=== PATIENT | male | born 1955 | race African-American/Black ===

== ENCOUNTER 2020-07-01 11:43 | Inpatient (IN) | payer OTHER ==
[~2020-07-01] VITALS: Ht 182.9 cm; Wt 192.8 kg
[2020-07-01 11:45] VITALS: BP 168/87
[2020-07-01 12:34] LABS: MONOCYTES 4.3 % (1.0-8.0); RBC 3.86 mil/uL (4.50-6.00)
[2020-07-01 12:38] LABS: ABSOLUTE NEUTROPHILS 8.7 thou/uL (1.4-8.2); BASOPHILS 0.3 % (0.0-2.0); HEMATOCRIT 33.8 % (42.0-52.0); HEMOGLOBIN 10.9 gm/dL (14.0-18.0); LYMPHOCYTES 4.6 % (24.0-44.0); MCH 28.3 pg (26.0-34.0); MCHC 32.4 g/dL (28.0-37.0); MCV 87.5 fL (80.0-100.0); PLATELET COUNT 162 thou/uL (150-400); POLYS 88.8 % (36.0-66.0); RDW 17.4 % (10.5-14.5); WBC 9.8 thou/uL (4.0-11.0)
[2020-07-01 12:44] LABS: ANION GAP 15 mmol/L (7-16); BUN 93 mg/dL (7-18); CALCIUM 9.7 mg/dL (8.5-10.1); CHLORIDE 98 mmol/L (98-107); CO2 26 mmol/L (21-32); CREATININE 8.8 mg/dL (0.7-1.3); GLUCOSE 101 mg/dL (74-106); POTASSIUM 4.2 mmol/L (3.5-5.1); SODIUM 139 mmol/L (136-145)
--- NOTE | 2020-07-01 12:47 | EKG ---
[place] [address] [place] [address] ELECTROCARDIOGRAM REPORT Name: JAGDEEPESVIN Charles Room #: [facility]#: [id number] Admission: 07/01/20 Attend Phys: Discharge: Date of : 55 Report #: [id number] [facility] ED Test Date: 2020-07-01 Test Time: 11:46:32 Pat Name: ESVIN GANNON Department: Room: Gender: M [employer]: [id number] : 1955 Requested By: Adrianna Briseno Order Number: [id number] MD: Sergio Alcantar Measurements Intervals [place] Rate: 84 P: 29 GA: 247 QRS: -10 QRSD: 101 T: 63 QT: 384 QTc: 454 Interpretive Statements Sinus rhythm Ventricular premature complex Prolonged GA interval Probable left atrial enlargement Anteroseptal infarct, age indeterminate No previous ECG available for comparison Electronically Signed On 07-01-2020 12:47:36 CDT by Sergio Alcantar [email or web address] <ELECTRONICALLY SIGNED> By: Sergio Alcantar MD, [facility] 07/01/20 1247 1146 1146 Sergio Alcantar MD, FACC /EPI
[2020-07-01 12:54] LABS: ALBUMIN 3.3 g/dL (3.4-5.0); SGOT 13 U/L (15-37); SGPT 17 U/L (30-65); TOTAL BILIRUBIN 0.4 mg/dL (0.2-1.0); TOTAL PROTEIN 7.4 g/dL (6.4-8.2); TROPONIN-I <0.06 ng/mL (<0.06)
[2020-07-01] MEDS ORDERED: TYLENOL325 M1 PO (12:59)
[2020-07-01] MEDS ORDERED: CARVEDILOL25 MG PO (13:00)
[2020-07-01] MEDS ORDERED: LIPITOR40 MG PO (13:00)
[2020-07-01] MEDS ORDERED: ALLOPURINOL 10100 M3 PO (13:00)
[2020-07-01] MEDS ORDERED: PLAVIX 75 MG TA75 MG PO (13:01)
[2020-07-01] MEDS ORDERED: SENSIPAR 30 MG30 MG PO (13:01)
[2020-07-01] MEDS ORDERED: ZETIA10 MG PO (13:01)
[2020-07-01] MEDS ORDERED: NEURONTIN300 MG PO (13:02)
[2020-07-01] MEDS ORDERED: FUROSEMIDE 40 M40 MG PO (13:02)
[2020-07-01] MEDS ORDERED: MIRALAX17 GM PO (13:03)
[2020-07-01] MEDS ORDERED: IPRAT-ALBUT 0.5-3 ML INH (13:04)
[2020-07-01] MEDS ORDERED: BIDIL TABLET1 EACH PO (13:04)
[2020-07-01] MEDS ORDERED: VYZULTA5 ML LT. EYE (13:05)
[2020-07-01] MEDS ORDERED: ENOXAPARIN30 MG/0.3 SUBQ (13:05)
[2020-07-01] MEDS ORDERED: NEPHRO-VITE RX1 TA1 PO (13:05)
[2020-07-01] MEDS ORDERED: PROTONIX40 M2 PO (13:06)
[2020-07-01] MEDS ORDERED: RENVELA800 MG PO (13:06)
[2020-07-01] MEDS ORDERED: SENNA PLUS TAB1 EACH PO (13:06)
[2020-07-01 16:21] VITALS: BP 115/88
[2020-07-01 17:12] VITALS: BP 182/87
[2020-07-01 17:50] VITALS: BP 153/81
--- NOTE | 2020-07-01 19:19 | NUR ---
RECEIVED PT FROM THE ER. PT IS AXOX3, SITUATIONAL AWARENESS CHANGES WHEN ASKING QUESTIONS. BP WAS HIGH IN ER BECAUSE OF AGITATION. SBP 150s. ADMISSION COMPLETED. PT RECEIVES HEMODIALYSIS MWF, L FA FISTULA. BED REPAIRER WELDING EQUIPMENT ORDERED FOR PT. PT BROTHER CALLED FOR UPDATE. POC IS TO DETERMINE CAUSE OF CP, N/V. PT IS NON AMBULATORY. FALL PRECAUTIONS IN PLACE. NO CONCERNS AT THIS TIME.
[2020-07-01 20:15] VITALS: BP 121/87
[2020-07-01 23:50] VITALS: BP 139/64
--- NOTE | 2020-07-02 03:22 | NUR ---
AWAKE MOST OF NOC WATCHING TV AND SNACKING. ASSIST TO REPOSITION NEEDED. WORKING ON GOALS AND PLAN OF CARE FOR NOC. DENIES FEELING OF SHORTNESS OF AIR. TOLERATED CPAP WITH O2 FOR 3 HOURS. NO COMPLAINTS OF CHEST PAIN THIS SHIFT. CONTINUE TO ASSES.
[2020-07-02 04:45] VITALS: BP 117/53
[2020-07-02 06:56] LABS: BASOPHILS 0.3 % (0.0-2.0); HEMATOCRIT 31.7 % (42.0-52.0); HEMOGLOBIN 9.9 gm/dL (14.0-18.0); LYMPHOCYTES 9.9 % (24.0-44.0); MCH 27.5 pg (26.0-34.0); MCHC 31.1 g/dL (28.0-37.0); MCV 88.4 fL (80.0-100.0); PLATELET COUNT 170 thou/uL (150-400); POLYS 79.8 % (36.0-66.0); RBC 3.59 mil/uL (4.50-6.00); RDW 17.3 % (10.5-14.5); WBC 7.6 thou/uL (4.0-11.0)
[2020-07-02 07:11] LABS: CALCIUM 9.7 mg/dL (8.5-10.1); MAGNESIUM 2.4 mg/dL (1.8-2.4); POTASSIUM 4.9 mmol/L (3.5-5.1)
[2020-07-02 07:12] VITALS: BP 122/53
[2020-07-02 07:15] LABS: CREATININE 10.2 mg/dL (0.7-1.3)
[2020-07-02 11:26] VITALS: BP 114/58
[2020-07-02 15:22] VITALS: BP 112/70
--- NOTE | 2020-07-02 18:42 | NUR ---
PT IS AXOX3, SITUATION AWARENESS STILL CHANGING. VSS, AFEBRILE, SR WITH PVCS ON MONITOR. NEPHRO CONSULTED. PT RECEIVED DIAYLSIS THIS PM. [address] RANDLE CONSULTED. POC IS TO CONTINUE ABX THERAPY, MONITOR PT FOR CHEST PAIN, N/V. PT RECEIVED ZOFRAN PRIOR TO DIALYSIS AND DENIES N/V/CHEST PAIN DURING PROCEDURE. RT CONSULTED. PT TO WEAR BIPAP HS. FALL PRECAUTIONS IN PLACE. FREQUENT ROUNDING. NO CONCERNS AT THIS TIME.
[2020-07-02 20:15] VITALS: BP 133/56
[2020-07-03 04:45] VITALS: BP 135/71
[2020-07-03 07:20] VITALS: BP 127/54
[2020-07-03 11:00] VITALS: BP 98/73
[2020-07-03 15:30] VITALS: BP 104/65
[2020-07-03 19:30] VITALS: BP 119/72
[2020-07-04 03:50] VITALS: BP 151/87
--- NOTE | 2020-07-04 04:32 | NUR ---
NOTED WEIGHT CHANGE, BED NOW HAS BED ELIGIBILITY SPECIALIST ON BED SINCE ADMISSION. AWAITING DIALYSIS THIS AM. SLEPT PART OF SHIFT. WORKING ON GOALS AND PLAN OF CARE FOR NOC. CONTINUE TO ASSES. DENIES COMPLAINTS OF PAIN, SHORTNESS OF AIR OR NAUSEA. ASKS FOR SNACKS FREQUENTLY.
[2020-07-04 07:25] VITALS: BP 153/81
[2020-07-04] MEDS ORDERED: KEFLEX250 MG PO (08:15)
--- NOTE | 2020-07-04 08:20 | NUR ---
PT ADMITTED FROM [facility]. PT LIVES ALONE IN A [facility]. PT STATED HIS UNCLE WILL MOVE IN WITH HIM ONCE HE RTRNS HOME. PT IS RECEIVING DIALYSIS THIS AM AND THEN WILL RTRN TO SKILLED FACILITY TO RESUME THERAPY. PT STATED HE USES A W/C AND WALKER AT HOME. CM WILL CONT TO FOLLOW.
[2020-07-04 11:06] VITALS: BP 117/67
--- NOTE | 2020-07-04 13:35 | NUR ---
Patient stable to discharge return to [facility]. Sp with Shaista in admissions at [facility]. Faxed ordres and updated information. SP wth patient and his mother and alerted of time of discharge as well at RN. Dante van arranged by [facility] for [phone].
[2020-07-04 17:06] LABS: HEP B SURFACE Ab(ANTI-HBS Reactive (()); HEPATITIS B SURFACE AG Negative (Negative)
--- NOTE | 2020-07-05 12:14 | NUR ---
BPCI letter and preferred network list provided to patient, lives at home setting
== END 2020-07-04 14:11 | DRG 193 ==
LOC: ER 11:43 → 2N 13:36 → EROBS 13:36 → 2N 17:20
PROVIDERS: Internal Medicine Nephrology; Nurse Practitioner Family; ADMIT Internal Medicine; ATTEND Internal Medicine
PROC: 5A1D70Z Performance of Urinary Filtration, Intermittent, Less than 6 Hours Per Day (ICD-10-PCS; principal; 2020-07-02)
PROC: 5A1D70Z Performance of Urinary Filtration, Intermittent, Less than 6 Hours Per Day (ICD-10-PCS; 2020-07-03)
PROC: 5A1D70Z Performance of Urinary Filtration, Intermittent, Less than 6 Hours Per Day (ICD-10-PCS; 2020-07-04)
DX: J18.9 Pneumonia, unspecified organism (principal); N18.6 End stage renal disease; J96.01 Acute respiratory failure with hypoxia; J81.1 Chronic pulmonary edema; I50.32 Chronic diastolic (congestive) heart failure; Z68.43 Body mass index [BMI] 50.0-59.9, adult; I13.2 Hypertensive heart and chronic kidney disease with heart failure and with stage 5 chronic kidney disease, or end stage renal disease; E66.01 Morbid (severe) obesity due to excess calories; E11.22 Type 2 diabetes mellitus with diabetic chronic kidney disease; M10.9 Gout, unspecified; D63.8 Anemia in other chronic diseases classified elsewhere; G47.33 Obstructive sleep apnea (adult) (pediatric); F03.90 Unspecified dementia, unspecified severity, without behavioral disturbance, psychotic disturbance, mood disturbance, and anxiety; K21.9 Gastro-esophageal reflux disease without esophagitis; J44.9 Chronic obstructive pulmonary disease, unspecified; Z20.822 Contact with and (suspected) exposure to COVID-19; Z88.8 Allergy status to other drugs, medicaments and biological substances; Z79.899 Other long term (current) drug therapy; I69.322 Dysarthria following cerebral infarction; Z99.2 Dependence on renal dialysis
CPT/HCPCS: 10081; 32100

== ENCOUNTER 2020-08-20 04:19 | Emergency (ER) | payer OTHER ==
[~2020-08-20] VITALS: Ht 182.9 cm; Wt 167.8 kg
--- NOTE | ~2020-08-20 | EMS ---
[facility] [address] [place] [address] EMS Patient Care Report Name: ESVIN GANNON Room #: DEP DINO Walker#: [id number] Admission: 08/20/20 Attend Phys: Discharge: 08/20/20 Date of : 55 Report #: [id number] THIS REPORT FOR: //name// Report Transmitted: 08/23/2020 14:42 EMS Care Summary [place], [place]/[facility] Incident [id number] @ 08/20/2020 03:50 Incident Location [facility] Patient ESVIN GANNON Male, 65 Years 1955 Patient Address [address] [place] [id number] Patient History Other,Hypertension (HTN),Stroke/CVA,End Stage Renal Disease (ESRD),Morbid Obesity,Anemia,Hypotension,Shortness of Breath,Sleep Apnea,Dialysis,Hyperkalemia, Patient Allergies Lisinopril, Patient Medications Amlodipine, Plavix, Acetaminophen, Atorvastatin, Lasix, Coreg, Allopurinol, Chief Complaint constipation Disposition Transported No Lights/[place] Dispatch Reason Chest Pain (Non-Traumatic) Transported To [facility] Narrative pt found a&o, NAD, in bed. he call 911 because he is having to strain to have [facility] [address] [place] [address] EMS Patient Care Report Name: ESVIN GANNON Room #: DEP [facility]#: [id number] Admission: 08/20/20 Attend Phys: Discharge: 08/20/20 Date of : 55 Report #: [id number] a BM. he called 911 last night for same but was not transported. staff gave pt a laxative@2200 last night. pt states he hasn't had a BM since the laxative. his last BM was yesterday afternoon. he req eval at [facility]. pt moved to [facility], transport w/o change. Initial Vitals @04:11P: 75,R: 18,BP: 187/81,Pain: 4/10,GCS: 15,SpO2: 96,Revised Trauma: 12, Assessments @03:59MENTAL:No Abnormalities,SKIN:No Abnormalities,HEENT:Head/Face: No Abnormalities,LUNG SOUNDS:ABDOMEN:PELVIS//GI:Pelvis GUOther,EXTREMITIES:PULSE:NEURO:No Abnormalities, Impression Constipation Procedures @03:59ALS AssessmentResponse: Unchanged@04:10StretcherResponse: Unchanged Timeline 03:48,Call Received 03:48,Dispatch Notified 03:50,Dispatched 03:51,En Route 03:56,On Scene 03:59,At Patient 03:59,ALS Assessment,Response: Unchanged 04:10,Stretcher,Response: Unchanged 04:11,BP: 187/81 M,PULSE: 75,RR: 18 R,SPO2: 96 Ox,ETCO2: ,BG: ,PAIN: 4,GCS: 15, 04:13,Depart Scene 04:16,At Destination 04:45,Call Closed Disclaimer v1.1 Copyright 2020 [employer] This EMS Care Summary contains data elements from the applicable legal record (which may be displayed differently). It is designed to provide pertinent information for the following purposes: continuity of care, clinical quality, and state data reporting. The complete legal record is available to ED staff and administrators of the receiving hospital in [employer]'s Patient Tracker. All data is provided "as is."
[~2020-08-20 04:19] MED LIST: ALLOPURINOL 10100 M3 PO; BIDIL TABLET1 EACH PO; CARVEDILOL25 MG PO; ENOXAPARIN30 MG/0.3 SUBQ; FUROSEMIDE 40 M40 MG PO; IPRAT-ALBUT 0.5-3 ML INH; KEFLEX250 MG PO; LIPITOR40 MG PO; MIRALAX17 GM PO; NEPHRO-VITE RX1 TA1 PO; NEURONTIN300 MG PO; PLAVIX 75 MG TA75 MG PO; PROTONIX40 M2 PO; RENVELA800 MG PO; SENNA PLUS TAB1 EACH PO; SENSIPAR 30 MG30 MG PO; TYLENOL325 M1 PO; VYZULTA5 ML LT. EYE; ZETIA10 MG PO
[2020-08-20 05:59] VITALS: BP 108/45
== END 2020-08-20 06:00 ==
LOC: ER 04:19
DX: K56.41 Fecal impaction (principal); E11.22 Type 2 diabetes mellitus with diabetic chronic kidney disease; I12.0 Hypertensive chronic kidney disease with stage 5 chronic kidney disease or end stage renal disease; N18.6 End stage renal disease; J44.9 Chronic obstructive pulmonary disease, unspecified; M10.9 Gout, unspecified; Z86.73 Personal history of transient ischemic attack (TIA), and cerebral infarction without residual deficits; Z99.2 Dependence on renal dialysis; Z88.8 Allergy status to other drugs, medicaments and biological substances

== ENCOUNTER 2020-08-20 11:44 | Emergency (ER) | payer OTHER ==
[~2020-08-20] VITALS: Ht 182.9 cm; Wt 158.8 kg
--- NOTE | ~2020-08-20 | EMS ---
[facility] [address] [place] [address] EMS Patient Care Report Name: ESVIN GANNON Room #: DEP [facility]#: [id number] Admission: 08/20/20 Attend Phys: Discharge: 08/20/20 Date of : 55 Report #: [id number] THIS REPORT FOR: //name// Report Transmitted: 08/23/2020 14:42 EMS Care Summary [place], [place]/[facility] Incident [id number] @ 08/20/2020 11:17 Incident Location [address] Patient ESVIN GANNON Male, 65 Years 1955 Patient Address [address] [place] [address] [address] [place] [address] Patient History Other,Congestive Heart Failure (CHF),Hypertension (HTN),Stroke/CVA,End Stage Renal Disease (ESRD),Morbid Obesity,Anemia,Constipation,Hypotension,Shortness of Breath,Sleep Apnea,Dialysis,Hyperkalemia, Patient Allergies Lisinopril, Patient Medications Lasix, Amlodipine, Coreg, Acetaminophen, Plavix, Atorvastatin, Allopurinol, Chief Complaint CONSTIPATION Disposition Transported No Lights/[place] Dispatch Reason Sick Person Transported To [facility] Narrative M36 dispatched on a sick person. M36 arrived to retirement to find PT in room [address] [address] EMS Patient Care Report Name: ESVIN GANNON Room #: DEP [facility]#: [id number] Admission: 08/20/20 Attend Phys: Discharge: 08/20/20 Date of : 55 Report #: [id number] supine in bed. PT stated constipation as chief complaint. PT stated "I went to the hospital for this earlier and they dug in there and I thought that fixed it, but it hurts." PT stated ID staff "gave me stuff for constipation last night around 10, but it did not work." PT stated lower left abdominal pain as additional complaint. PT denied shortness of breath, N/V/D and cough. PT moved to stretcher via Raheem lift. PT secured with seatbelts. ID staff stated PT "went to hospital twice this morning and was sent right back." PT alert and oriented x4. PT spoke in complete sentences. No gross bleeding or trauma noted. PT vitals monitored en route. PT report given. PT moved to hospital bed via three person sheet lift. PT care and belongings transferred to ER staff at [facility] without incident. M36 placed back in service. Initial Vitals @11:36P: 80,R: 16,BP: 176/66,Pain: 10/10,GCS: 15,CO: 5,SpO2: 95,Revised Trauma: 12, @11:40P: 82,R: 18,BP: 168/78,Pain: 10/10,GCS: 15,CO: 5,SpO2: 96,Revised Trauma: 12, Assessments @11:35MENTAL:Person Oriented,Time Oriented,Place Oriented,Event Oriented,SKIN:HEENT:LUNG SOUNDS:Left Lower: Tenderness,ABDOMEN:Left Lower: Tenderness,PELVIS//GI:EXTREMITIES:Left Leg: Weakness,Right Leg: Weakness,PULSE:Radial: 2+ Normal,NEURO:Weakness Right-Sided, Impression Constipation Procedures @11:35ALS AssessmentResponse: UnchangedSucceeded Timeline 11:15,Call Received 11:15,Dispatch Notified 11:17,Dispatched 11:18,En Route 11:22,On Scene 11:24,At Patient 11:35,ALS Assessment,Response: UnchangedSucceeded, 11:36,BP: 176/66 M,PULSE: 80,RR: 16 R,SPO2: 95 Ox,ETCO2: ,BG: ,PAIN: 10,GCS: 15, 11:39,Depart Scene 11:40,BP: 168/78 M,PULSE: 82,RR: 18 R,SPO2: 96 Ox,ETCO2: ,BG: ,PAIN: 10,GCS: 15, 11:41,At Destination 11:56,Call Closed [address] [address] EMS Patient Care Report Name: ESVIN GANNON Room #: DEP Den[facility]#: [id number] Admission: 08/20/20 Attend Phys: Discharge: 08/20/20 Date of : 55 Report #: [id number] Disclaimer v1.1 Copyright 2020 [employer] This EMS Care Summary contains data elements from the applicable legal record (which may be displayed differently). It is designed to provide pertinent information for the following purposes: continuity of care, clinical quality, and state data reporting. The complete legal record is available to ED staff and administrators of the receiving hospital in [facility]'s Patient Tracker. All data is provided "as is."
[2020-08-20 13:21] VITALS: BP 119/63
== END 2020-08-20 13:32 ==
LOC: ER 11:44
DX: K59.00 Constipation, unspecified (principal); E11.22 Type 2 diabetes mellitus with diabetic chronic kidney disease; I12.0 Hypertensive chronic kidney disease with stage 5 chronic kidney disease or end stage renal disease; N18.6 End stage renal disease; J44.9 Chronic obstructive pulmonary disease, unspecified; M10.9 Gout, unspecified; E66.01 Morbid (severe) obesity due to excess calories; Z88.8 Allergy status to other drugs, medicaments and biological substances; Z86.73 Personal history of transient ischemic attack (TIA), and cerebral infarction without residual deficits; Z99.2 Dependence on renal dialysis

== ENCOUNTER 2021-01-04 14:07 | Emergency (ER) | payer OTHER ==
[~2021-01-04] VITALS: Ht 182.9 cm; Wt 176.9 kg
[2021-01-04 14:42] LABS: ABSOLUTE NEUTROPHILS 6.2 thou/uL (1.4-8.2); BASOPHILS 0.5 % (0.0-2.0); EOSINOPHILS 2.3 % (0.0-3.0); HEMATOCRIT 29.8 % (42.0-52.0); HEMOGLOBIN 9.6 gm/dL (14.0-18.0); LYMPHOCYTES 8.7 % (24.0-44.0); MCH 29.7 pg (26.0-34.0); MCHC 32.3 g/dL (28.0-37.0); MCV 91.9 fL (80.0-100.0); MONOCYTES 5.4 % (1.0-8.0); PLATELET COUNT 158 thou/uL (150-400); POLYS 83.1 % (36.0-66.0); RBC 3.24 mil/uL (4.50-6.00); RDW 14.2 % (10.5-14.5); WBC 7.5 thou/uL (4.0-11.0)
[2021-01-04 15:07] LABS: CREATININE 4.9 mg/dL (0.7-1.3); POTASSIUM 3.7 mmol/L (3.5-5.1)
[2021-01-04 15:12] LABS: ALBUMIN 3.1 g/dL (3.4-5.0); TOTAL BILIRUBIN 0.2 mg/dL (0.2-1.0); TOTAL PROTEIN 6.9 g/dL (6.4-8.2)
[2021-01-04] MEDS ORDERED: ZOFRAN ODT4 MG PO (15:34)
[2021-01-04] MEDS ORDERED: COLACE100 MG PO (15:34)
[2021-01-04] MEDS ORDERED: LEVSIN0.125 MG PO (15:34)
[2021-01-04 16:45] VITALS: BP 183/83
== END 2021-01-04 16:49 | disposition home or self-care (01) ==
LOC: ER 14:07
PROVIDERS: Emergency Medicine
DX: R10.12 Left upper quadrant pain (principal); E11.22 Type 2 diabetes mellitus with diabetic chronic kidney disease; J44.9 Chronic obstructive pulmonary disease, unspecified; M10.9 Gout, unspecified; I12.0 Hypertensive chronic kidney disease with stage 5 chronic kidney disease or end stage renal disease; N18.6 End stage renal disease; Z79.899 Other long term (current) drug therapy; Z88.8 Allergy status to other drugs, medicaments and biological substances

== ENCOUNTER 2021-03-11 00:22 | Emergency (ER) | payer OTHER ==
[~2021-03-11] VITALS: Ht 182.9 cm; Wt 172.4 kg
[~2021-03-11 00:22] MED LIST changes: +COLACE100 MG PO; +LEVSIN0.125 MG PO; +ZOFRAN ODT4 MG PO
[2021-03-11 03:25] VITALS: BP 120/82
== END 2021-03-11 04:15 | disposition home or self-care (01) ==
LOC: ER 00:22
DX: M79.672 Pain in left foot (principal); M79.671 Pain in right foot; I12.0 Hypertensive chronic kidney disease with stage 5 chronic kidney disease or end stage renal disease; E11.22 Type 2 diabetes mellitus with diabetic chronic kidney disease; N18.6 End stage renal disease; J44.9 Chronic obstructive pulmonary disease, unspecified; Z79.899 Other long term (current) drug therapy; Z88.8 Allergy status to other drugs, medicaments and biological substances